=== PATIENT | male | born 1990 | race Caucasian/White ===

== ENCOUNTER 2021-04-10 17:33 | Emergency (ER) | payer OTHER, SELFPAY ==
--- NOTE | ~2021-04-10 | XR_ITS ---
XR chest 2V DATE: 04/10/2021 18:26 INDICATION: Cough and congestion for 4 days. Smoker. TECHNIQUE: PA and lateral views COMPARISON: None FINDINGS: There is bilateral hyperinflation. The lungs are clear of infiltrate or consolidation. No h ilar or mediastinal enlargement. Normal heart size. IMPRESSION: Bilateral hyperinflation Reviewed, dictated and finalized at location A. IMPRESSION: Bilateral hyperinflation
--- NOTE | 2021-04-10 17:43 | ED.URI ---
HPI - URI/Sore Throat General Chief Complaint: Upper Respiratory Infection Stated Complaint: cough aches Time Seen by Provider: 04/10/21 17:43 Source: patient and RN notes reviewed History of Present Illness HPI Narrative: Patient is a 31-year-old male who presents the urgent care with complaints of cough and chest congestion. Patient states that he went to a [place] party on Friday and woke up with the symptoms Friday morning at 3 AM. Patient states that the chest congestion seems to have gotten worse and he is also wheezing. Patient states that he has a court date soon and needs to make sure he is not Covid positive . Patient does admit to snorting cocaine and Xanax. States that he has been taking an [id number] allergy medication. Also reports of a fever. Denies of any other upper respiratory complaints. No other acute complaints. No acute distress noted. Patient aware of the plan of care. Some parts of this dictation were generated by voice recognition software and may contain typographical and/or grammatical inaccuracies. Related Data Allergies Allergy/AdvReac Type Severity Reaction Status Date / Time Penicillins Allergy Mild Hives Verified 04/10/21 18:07 Review of Systems Review of Systems: Narrative: CONSTITUTIONAL: Reports a fever EYES: Denies visual changes, redness, or discharge. ENT: Denies rhinorrhea, congestion, sore throat, or otalgia. CARDIOVASCULAR: Denies chest pain, palpitations, or edema. RESPIRATORY: Reports of cough, intermittent dyspnea wheezing and chest congestion GASTROINTESTINAL: Denies abdominal pain, nausea, vomiting, or diarrhea. GENITOURINARY: Denies dysuria or hematuria. SKIN: Denies rash or itching. MUSCULOSKELETAL: Denies back pain, joint pain, or myalgia. NEUROLOGIC: Denies headache, numbness, or weakness. All other systems reviewed are negative, except as documented in HPI. [facility] Past Medical History Medical History (Updated 04/10/21 @ 18:54 by CARLIE Dominguez) Opioid abuse Comments At the time of my signature, I reviewed and agree with the nursing past medical, surgical, social, and family history. There is no relevant family history pertinent to the patient complaint. Exam Narrative: Exam Narrative: GENERAL: This is a well-nourished, well-developed patient, in no apparent distress. HEAD: normocephalic, atraumatic. EYES: PERRL. Sclera clear/white. Vision is grossly intact. EARS: External ears normal, auditory canals clear and without drainage, TMs normal without perforation. Hearing grossly intact. NOSE: External nose normal with no obvious nasal discharge, nares without redness, no rhinorrhea. THROAT: Mucous membranes moist, posterior pharynx clear. Mild postnasal drainage NECK: Neck supple CARDIOVASCULAR: Regular rate and rhythm without murmurs, gallops, or rubs. RESPIRATORY: Diffuse crackles and expiratory wheezes throughout SKIN: warm, intact with no suspicious lesions or rash, good texture and turgor. NEURO: awake, alert, and oriented to person, place and time. There were no obvious focal neurologic abnormalities. EXTREMITIES: No clubbing, cyanosis, or edema. Course Vital Signs Vital signs: Vital Signs Temperature 98.2 F 04/10/21 17:49 Pulse Rate 103 H 04/10/21 17:49 Respiratory Rate 18 04/10/21 17:49 Blood Pressure 118/73 04/10/21 17:49 Pulse Oximetry 96 04/10/21 17:49 Temperature 98.2 F 04/10/21 18:07 Pulse Rate 103 H 04/10/21 18:07 Respiratory Rate 18 04/10/21 18:07 Blood Pressure 118/73 04/10/21 18:07 Pulse Oximetry 96 04/10/21 18:07 Reviewed MDM - URI/Sore Throat MDM Narrative Medical decision making narrative: Reviewed x-ray results with the patient. He is aware that chest x-ray does not show anything acute or abnormal such as pneumonia. He does have hyperinflation which is likely due to years of smoking as well as inhaling cocaine and Xanax. Advised the patient to stop his narcotic/benzodiazepine drug addictions. Steve
[2021-04-10 17:49] VITALS: BP 118/73; PULSE 103; RESP 18; TEMP 36.8; O2SAT 96
[2021-04-10 18:07] VITALS: BP 118/73; PULSE 103; RESP 18; TEMP 36.8; O2SAT 96
[2021-04-10] MEDS: ALBUTEROL SULFATE NEB 2.5 MG/3 ML INH INHALATION (18:56)
[2021-04-12 18:42] LABS: SARS-CoV-2 RNA PCR Negative
== END 2021-04-10 19:20 | disposition home or self-care (01) ==
PROVIDERS: Emergency Provider Nurse Practitioner Family
DX: J40 Bronchitis, not specified as acute or chronic (principal); Z20.822 Contact with and (suspected) exposure to COVID-19
CPT/HCPCS: 71046; 94640; 99213; C9803; G0463; U0003; U0005